=== PATIENT | female | born 1940 ===

== ENCOUNTER → 2021-01-29 20:06 | Outpatient (ROUT) | payer MEDICARE, OTHER, SELFPAY ==
[2021-01-29 20:49] LABS: Aspartate Aminotransferase 34 IU/L (14-36); Blood Urea Nitrogen 23 mg/dL (7-17); Calcium 9.7 mg/dL (8.4-10.2); Carbon Dioxide 28 mmol/L (22-32); Chloride 92 mmol/L (98-107); Cholesterol 135 mg/dL (140-199); Estimated Glomerular Filt Rate > 60.0 mL/min (>60); Glucose 118 mg/dL (80-110); HDL Cholesterol 82 mg/dL (40-60); HEMOLYSIS < 15 (0-50); LDL Cholesterol Calculated 34 mg/dL (<100); Potassium 3.5 mmol/L (3.4-5.1); Sodium 127 mmol/L (137-145); Triglycerides 95 mg/dL (35-150)
[2021-01-29 21:14] LABS: TSH w/ Reflex to FT4 0.24 uIU/mL (0.47-4.68)
[2021-01-29 23:11] LABS: Free T4, Direct Thyroxine 1.35 ng/dL (0.78-2.19)
== END ==
PROVIDERS: Visit Provider Internal Medicine
DX: E78.2 Mixed hyperlipidemia (principal); E03.9 Hypothyroidism, unspecified; I10 Essential (primary) hypertension
CPT/HCPCS: 80048; 80061; 84439; 84443; 84450

== ENCOUNTER → 2021-02-15 20:19 | Outpatient (ROUT) | payer MEDICARE, OTHER, SELFPAY ==
[2021-02-15 20:49] LABS: BUN Creatinine Ratio 23.4 (6-22); Blood Urea Nitrogen 22 mg/dL (7-17); Calcium 9.5 mg/dL (8.4-10.2); Carbon Dioxide 32 mmol/L (22-32); Chloride 94 mmol/L (98-107); Estimated Glomerular Filt Rate 57.3 mL/min (>60); Glucose 124 mg/dL (80-110); HEMOLYSIS < 15 (0-50); Potassium 4.1 mmol/L (3.4-5.1); Sodium 132 mmol/L (137-145)
[2021-02-15 21:19] LABS: TSH w/ Reflex to FT4 0.76 uIU/mL (0.47-4.68)
== END ==
PROVIDERS: Visit Provider Internal Medicine
DX: I10 Essential (primary) hypertension (principal); E03.9 Hypothyroidism, unspecified
CPT/HCPCS: 80048; 84443